=== PATIENT | male | born 1930 | race Two or more races ===

== ENCOUNTER 2017-05-29 16:47 | Emergency (ER) | payer OTHER ==
[~2017-05-29] VITALS: Ht 162.6 cm; Wt 90.7 kg
[~2017-05-29 16:47] MED LIST: AMLODIPINE BESYL5 MG PO; AMOX1TAB12 PO; ASPIR-LOW81 MG PO; COZAAR50 MG PO; GABAPENTIN300 MG PO; GLIMEPIRIDE4 MG; GLIMEPIRIDE4 MG PO; ISOSORBIDE DINI30 MG PO; SIMVASTATIN40 MG PO
[2017-05-30] MEDS ORDERED: INTESTINEX680 M1 PO (12:49)
[2017-05-30] MEDS ORDERED: DOXYCYCLINE HY100 MG PO (12:49)
[2017-05-30] MEDS ORDERED: CIPRO250 MG PO (12:49)
[2017-05-30] MEDS ORDERED: ZANTAC150 M3 PO (12:49)
== END 2017-05-30 13:03 | disposition home or self-care (01) ==
LOC: ER 16:47
DX: N39.0 Urinary tract infection, site not specified (principal); E86.0 Dehydration; N17.9 Acute kidney failure, unspecified; N18.3 Chronic kidney disease, stage 3 (moderate); D63.8 Anemia in other chronic diseases classified elsewhere; D69.6 Thrombocytopenia, unspecified; B96.20 Unspecified Escherichia coli [E. coli] as the cause of diseases classified elsewhere; B95.7 Other staphylococcus as the cause of diseases classified elsewhere

== ENCOUNTER 2018-01-08 10:00 | Outpatient (CLI) | payer OTHER ==
[~2018-01-08 10:00] MED LIST changes: +CIPRO250 MG PO; +DOXYCYCLINE HY100 MG PO; +INTESTINEX680 M1 PO; +ZANTAC150 M3 PO
== END 2018-01-08 10:06 | disposition home or self-care (01) ==
LOC: LAB 10:00
DX: D50.8 Other iron deficiency anemias (principal); E11.9 Type 2 diabetes mellitus without complications; E78.2 Mixed hyperlipidemia; R94.5 Abnormal results of liver function studies; R19.5 Other fecal abnormalities

== ENCOUNTER 2019-09-10 08:14 | Inpatient (IN) | payer OTHER ==
[~2019-09-10] VITALS: Ht 121.9 cm; Wt 5.0 kg
[2019-09-23] MEDS ORDERED: ISOSORBIDE MONO30 MG PO (15:58)
[2019-09-23] MEDS ORDERED: CLOPIDOGREL BIS75 MG PO (15:58)
[2019-09-23] MEDS ORDERED: LOSARTAN POTASS50 MG PO (15:58)
[2019-09-23] MEDS ORDERED: ASA-EC81 MG PO (15:58)
[2019-09-23] MEDS ORDERED: SIMVASTATIN40 MG PO (15:58)
[2019-09-23] MEDS ORDERED: AMLODIPINE BESYL5 MG PO (15:58)
== END 2019-09-23 17:15 | disposition home health service (06) | DRG 193 ==
LOC: ER 08:14 → MEDJ 17:45
PROVIDERS: ADMIT Internal Medicine; ATTEND Internal Medicine
PROC: 8E0ZXY6 Isolation (ICD-10-PCS; 2019-09-10)
PROC: CB2YYZZ Tomographic (Tomo) Nuclear Medicine Imaging of Respiratory System using Other Radionuclide (ICD-10-PCS; 2019-09-10)
PROC: 4A12X4Z Monitoring of Cardiac Electrical Activity, External Approach (ICD-10-PCS; 2019-09-10)
PROC: 4A033R1 Measurement of Arterial Saturation, Peripheral, Percutaneous Approach (ICD-10-PCS; 2019-09-10)
PROC: B24BZZZ Ultrasonography of Heart with Aorta (ICD-10-PCS; principal; 2019-09-11)
PROC: 3E0F7GC Introduction of Other Therapeutic Substance into Respiratory Tract, Via Natural or Artificial Opening (ICD-10-PCS; 2019-09-15)
DX: J18.9 Pneumonia, unspecified organism (principal); I21.4 Non-ST elevation (NSTEMI) myocardial infarction; I50.33 Acute on chronic diastolic (congestive) heart failure; J44.1 Chronic obstructive pulmonary disease with (acute) exacerbation; I13.0 Hypertensive heart and chronic kidney disease with heart failure and stage 1 through stage 4 chronic kidney disease, or unspecified chronic kidney disease; R09.02 Hypoxemia; E11.311 Type 2 diabetes mellitus with unspecified diabetic retinopathy with macular edema; N18.3 Chronic kidney disease, stage 3 (moderate); D69.6 Thrombocytopenia, unspecified; Z85.46 Personal history of malignant neoplasm of prostate; Z95.1 Presence of aortocoronary bypass graft

== ENCOUNTER 2019-11-30 18:38 | Emergency (ER) | payer OTHER ==
[~2019-11-30] VITALS: Ht 162.6 cm; Wt 80.7 kg
[~2019-11-30 18:38] MED LIST changes: +ASA-EC81 MG PO; +CLOPIDOGREL BIS75 MG PO; +ISOSORBIDE MONO30 MG PO; +LOSARTAN POTASS50 MG PO
== END 2019-12-01 21:01 | disposition home or self-care (01) ==
LOC: ER 18:38
DX: I11.0 Hypertensive heart disease with heart failure (principal); I50.9 Heart failure, unspecified; N17.9 Acute kidney failure, unspecified; B96.1 Klebsiella pneumoniae [K. pneumoniae] as the cause of diseases classified elsewhere

== ENCOUNTER → 2020-01-15 10:21 | Outpatient (CLI) | payer OTHER | END | disposition home or self-care (01) | LOC: LAB 10:21 | PROVIDERS: ATTEND Specialist | DX: Z03.818 Encounter for observation for suspected exposure to other biological agents ruled out (principal); Z20.828 Contact with and (suspected) exposure to other viral communicable diseases; R50.9 Fever, unspecified; R06.02 Shortness of breath ==